=== PATIENT | female | born 1985 | race Caucasian/White ===

== ENCOUNTER 2017-12-14 20:40 | Emergency (ER) | payer OTHER, MEDICAID, SELFPAY ==
[2017-12-14 20:48] VITALS: BP 121/85; PULSE 86; RESP 16; TEMP 36.1; O2SAT 99; BMI 37.3
[2017-12-14 21:09] LABS: RBC Urine None Seen (0-5/HPF)
--- NOTE | 2017-12-14 21:14 | ED.FEMALEGU ---
HPI - Female Genitourinary <Kelsie Carrillo, ANCILLARY SERVICES MANAGER THERAPY-BC - Last Filed: 12/14/17 21:42> General Chief complaint: Urogenital-Female Stated complaint: UTI Time Seen by Provider: 12/14/17 20:42 Source: patient Mode of arrival: ambulatory Limitations: no limitations History of Present Illness HPI Narrative: Patient presents with dysuria, urgency and frequency for several days. She also complains of lower back ache. She denies fevers, denies nausea, vomiting or diarrhea. States that she has had UTIs on all since she was 2 years old. States she has not had 1 for the past year to. States that it evans so much to urinate that she is no longer drinking enough water. She states she has been using azo for the past 2 days. Denies any vaginal symptoms. Related Data Home Medications Medication Instructions Recorded Confirmed bupropion HCl [Wellbutrin SR] 200 mg PO QAM #0 11/27/16 cholecalciferol (vitamin D3) 50,000 unit PO #0 11/27/16 clonazepam BID #0 11/27/16 clonidine HCl 3 tab PO HS #0 11/27/16 dextroamphetamine-amphetamine 10 mg PO BID #0 11/27/16 [Adderall] doxazosin 2 mg PO QDAY #0 11/27/16 gabapentin [Neurontin] 600 mg PO TID #0 11/27/16 lurasidone [Latuda] 20 mg PO QDAY #0 11/27/16 Previous Rx's Medication Instructions Recorded meclizine 25 mg PO Q6HP PRN #20 tab 11/27/16 ondansetron [Zofran ODT] 4 mg SUBLINGUAL Q4HP PRN #15 odt 11/27/16 nitrofurantoin macrocrystal 100 mg PO BID #14 cap 12/14/17 Allergies Allergy/AdvReac Type Severity Reaction Status Date / Time ciprofloxacin [From CIPRO] Allergy Severe Difficulty Unverified 12/14/17 20:54 Breathing amoxicillin [AMOXICILLIN] Allergy Intermediate HIVES Unverified 09/10/17 12:02 Penicillins [PENICILLINS] Allergy Intermediate HIVES Unverified 09/10/17 12:02 Sulfa (Sulfonamide Allergy Unknown hives Unverified 09/10/17 12:02 Antibiotics) [SULFA (SULFONAMIDE ANTIBIOTICS)] Review of Systems <TINO Maya-BC - Last Filed: 12/14/17 21:42> Review of Systems GENERAL: Denies chills, fatigue, malaise, fever, sweats. HEENT: Denies sinus pain, ear pain, sore throat, difficulty swallowing, dizziness. RESPIRATORY: Denies dyspnea, cough, wheezing, hemoptysis, sputum. CARDIOVASCULAR: Denies chest pain, palpitations, orthopnea, edema, GASTROINTESTINAL: Denies nausea, vomiting, abdominal pain, diarrhea, constipation, melena. : See HPI MUSCULOSKELETAL: denies weakness, joint pain, or bony pain SKIN: Denies rash, skin lesions, or other NEUROLOGIC: Denies weakness, headache, numbness, change in speech, confusion, seizures, incoordination. PSYCHIATRIC: No concerning psychosocial issues. 12 point review of systems is negative except for those stated above Exam <Kelsie Carrillo ANCILLARY SERVICES MANAGER THERAPY-BC - Last Filed: 12/14/17 21:42> Narrative Exam Narrative: GENERAL: This is a well-nourished, well-developed patient, teary HEAD: Atraumatic. Normocephalic. No temporal or scalp tenderness. EYES: Pupils equal round and reactive. Extraocular motions intact. No scleral icterus. No injection or drainage. ENT: Nose without bleeding, purulent drainage or septal hematoma. Throat without erythema, tonsillar hypertrophy or exudate. Uvula midline. Airway patent. NECK: Trachea midline. No JVD or lymphadenopathy. Supple, nontender, no meningeal signs. CARDIOVASCULAR: Regular rate and rhythm without murmurs, gallops, or rubs. RESPIRATORY: Clear to auscultation. Breath sounds equal bilaterally. No wheezes, rales, or rhonchi. GASTROINTESTINAL: Abdomen soft, nondistended. No hepato-splenomegaly, or palpable masses. No guarding. Stay slight suprapubic pain to palpation. No pain at McBurney's point. No guarding, no rigidity. No CVA tenderness bilaterally. EXTREMITIES: No clubbing, cyanosis, or edema. No joint tenderness, effusion, or edema noted. BACK: Nontender without deformity or crepitance. No flank tenderness. NEURO: AOx3. SKIN: No rash or erythema. Initial Vital Signs Initial Vital Signs: Vital Signs Temperature 97.0 F L 12/14/17 20:48 Pulse Rate 86 07/15/18 20:48 Respiratory Rate 16 12/14/17 20:48 Blood Pressure 121/85 H 12/14/17 20:48 Pulse Oximetry 99 12/14/17 20:48 <Forrest Dumont DO - Last Filed: 12/14/17 22:59> Initial Vital Signs Initial Vital Signs: Vital Signs Temperature 97.0 F L 12/14/17 20:48 Pulse Rate 86 12/14/17 20:48 Respiratory Rate 16 12/14/17 20:48 Blood Pressure 121/85 H 12/14/17 20:48 Pulse Oximetry 99 12/14/17 20:48 Course <ROOSEVELT Maya - Last Filed: 12/14/17 21:42> Orders Ordered: ED Orders 12/14/17 21:00 UA Complete [Urinalysis and Microscopic] Stat Urine Culture Stat Discontinued Medications Nitrofurantoin Macrocrystals (Macrobid 100 Mg Capsule) 100 mg PO NOW ONE Stop: 12/14/17 21:29 Last Admin: 12/14/17 21:31 Dose: 100 mg Reevaluation(s) Reevaluation #1: Discussed urinalysis result. Discussed giving 1st dose of antibiotic in the emergency department. Discussed return precautions of fever nausea vomiting or diarrhea. Discussed procedure of sending urine culture. Patient had no questions or concerns. Time: 21:25 Vital Signs - 8 hr 12/14/17 20:48 Temperature 97.0 F L Pulse Rate 86 Respiratory Rate 16 Blood Pressure 121/85 H Pulse Oximetry 99 <Forrest Dumont DO - Last Filed: 12/14/17 22:59> Orders Ordered: ED Orders 12/14/17 21:00 UA Complete [Urinalysis and Microscopic] Stat Urine Culture Stat Discontinued Medications Nitrofurantoin Macrocrystals (Macrobid 100 Mg Capsule) 100 mg PO NOW ONE Stop: 12/14/17 21:29 Last Admin: 12/14/17 21:31 Dose: 100 mg Vital Signs - 8 hr 12/14/17 20:48 Temperature 97.0 F L Pulse Rate 86 Respiratory Rate 16 Blood Pressure 121/85 H Pulse Oximetry 99 MDM - Female Genitourinary <ROOSEVELT Maya - Last Filed: 12/14/17 21:42> Lab Data Attestation: I reviewed the patient's lab results. Lab Results 12/14/17 Range/Units 21:00 Urine Color Yellow Urine Appearance Sl cloudy Urine pH 7.5 (4.5-8.0) Ur Specific [place] <=1.005 (1.000-1.035) Urine Protein Negative (Negative) Urine Glucose (UA) Trace (Normal) g/dL Urine Ketones Negative (NEGATIVE) Urine Occult Blood 1+ H (Negative) Urine Nitrate Positive H (Negative) Urine Bilirubin Negative (NEGATIVE) Urine Urobilinogen 1.0 (0.2) E.U./dL Ur Leukocyte Esterase 1+ H (NEGATIVE) Urine RBC None seen (0-5/HPF) Urine WBC 1-5/hpf (0-5/HPF) Ur Squamous Epith Cells 0-1 /hpf Urine Bacteria Moderate (10-30) H (None) Ur Culture Indicated? Specimen cultured Micro UA Comment Not Reportable MDM Narrative Medical decision making narrative: Patient came in with dysuria, urgency and frequency. Patient declined any fevers, nausea vomiting or diarrhea home. A urinalysis showed nitrates, bacteria, leukocyte Estrace and blood. Thus l will treat her for urinary tract infection. Given her lack of systemic symptoms as well as her allergies to ciprofloxacin, penicillin, and sulfa antibiotics I will treat her with Macrobid. Given the hour, I will give her 1st dose in the emergency department and a prescription to take home. <Forrest Dumont, DO - Last Filed: 12/14/17 22:59> Lab Data Lab Results 12/14/17 Range/Units 21:00 Urine Color Yellow Urine Appearance Sl cloudy Urine pH 7.5 (4.5-8.0) Ur Specific [place] <=1.005 (1.000-1.035) Urine Protein Negative (Negative) Urine Glucose (UA) Trace (Normal) g/dL Urine Ketones Negative (NEGATIVE) Urine Occult Blood 1+ H (Negative) Urine Nitrate Positive H (Negative) Urine Bilirubin Negative (NEGATIVE) Urine Urobilinogen 1.0 (0.2) E.U./dL Ur Leukocyte Esterase 1+ H (NEGATIVE) Urine RBC None seen (0-5/HPF) Urine WBC 1-5/hpf (0-5/HPF) Ur Squamous Epith Cells 0-1 /hpf Urine Bacteria Moderate (10-30) H (None) Ur Culture Indicated? Specimen cultured Micro UA Comment Not Reportable Discharge Plan Departure Patient Disposition: Home, Self-Care Clinical Impression: Urinary tract infection Discharge Date/Time: 12/14/17 21:43 Interventions: ED Discharge Assessment Last Done: 12/14/17 21:42 Instructions: DI for Urinary Tract Infection (UTI) Activity Restrictions/Additional Instructions: I am treating you for a urinary tract infection. We have given you a dose of antibiotic in the emergency department. Monitor for fevers, nausea vomiting or diarrhea and be evaluated if any of those occur. These symptoms might represent worsening of your urinary tract infection to a kidney infection. Please drink lots of fluids. I am sending a urine culture to make sure I chose a good antibiotic for you. Prescriptions: New nitrofurantoin macrocrystal 100 mg capsule 100 mg PO BID Qty: 14 RF: 0 No Action clonidine HCl 0.1 MG tablet 3 tab PO HS Qty: 0 RF: 0 dextroamphetamine-amphetamine [Adderall] 10 MG tablet 10 mg PO BID Qty: 0 RF: 0 cholecalciferol (vitamin D3) 50,000 UNIT capsule 50,000 unit PO Qty: 0 RF: 0 gabapentin [Neurontin] 600 MG tablet 600 mg PO TID Qty: 0 RF: 0 bupropion HCl [Wellbutrin SR] 200 MG tablet extended release 12 hr 200 mg PO QAM Qty: 0 RF: 0 lurasidone [Latuda] 20 MG tablet 20 mg PO QDAY Qty: 0 RF: 0 clonazepam 1 MG tablet BID Qty: 0 RF: 0 doxazosin 2 MG tablet 2 mg PO QDAY Qty: 0 RF: 0 ondansetron [Zofran ODT] 4 MG tablet,disintegrating 4 mg Sublingual Q4HP PRNQty: 15 RF: 0 meclizine 25 MG tablet 25 mg PO Q6HP PRNQty: 20 RF: 0 <Forrest Dumont, DO - Last Filed: 12/14/17 22:59> [facility] ED Attending Madyson Attestation: I was immediately available in the department for consultation. Documentation has been reviewed. I agree with assessment and plan.
[2017-12-14 21:21] LABS: Bilirubin Urine UA NEGATIVE (NEGATIVE); Color Urine UA YELLOW; Glucose Urine UA TRACE g/dL (Normal); Ketones Urine UA NEGATIVE (NEGATIVE); Leukocyte Esterase Urine UA 1+ (NEGATIVE); Nitrite Urine UA POSITIVE (Negative); Occult Blood Urine UA 1+ (Negative); Protein Urine UA NEGATIVE (Negative); Specific Gravity Urine UA <=1.005 (1.000-1.035); pH Urine UA 7.5 (4.5-8.0)
[2017-12-14 21:24] LABS: Appearance Urine UA SL CLOUDY
[2017-12-14 21:25] LABS: Bacteria Urine Moderate (10-30); Culture Indicated Urine Specimen Cultured; Squamous Epithelial Cell Urine 0-1 /HPF; WBC Urine 1-5/HPF (0-5/HPF)
[2017-12-14] MEDS: NITROFURANTOIN ER 100 MG CAPSULE PO (21:31)
== END 2017-12-14 21:43 | disposition home or self-care (01) ==
PROVIDERS: Emergency Provider Nurse Practitioner Family
DX: N39.0 Urinary tract infection, site not specified (principal)
CPT/HCPCS: 81001; 87086; 99283

== ENCOUNTER 2018-11-06 19:02 | Emergency (ER) | payer OTHER, MEDICAID, SELFPAY ==
[2018-11-06 19:14] VITALS: BP 144/111; PULSE 100; RESP 15; TEMP 37.7; O2SAT 100; BMI 38.5
--- NOTE | 2018-11-06 20:37 | ED_ITS ---
HPI - Wound/Laceration General Chief Complaint: Wound/Laceration Stated Complaint: Surgery a week ago, pain and drainage Time Seen by Provider: 11/06/18 20:29 Source: patient Mode of arrival: ambulatory Limitations: no limitations History of Present Illness HPI narrative: 33-year-old female who recently underwent a lower lumbar surgery at the [facility]. Patient states that recently she started havi ng increased drainage on the bandage over lower back. She also having increased pain. Also complaining of ?low-grade? fevers at home. She stated that she called her surgeon's office who told her to come to the emergency department for evaluation. Related Data Home Medications Medication Instructions Recorded Confirmed bupropion HCl [Wellbutrin SR] 200 mg PO QAM #0 11/27/16 cholecalciferol (vitamin D3) 50,000 unit PO #0 11/27/16 clonazepam BID #0 11/27/16 clonidine HCl 3 tab PO HS #0 11/27/16 dextroamphetamine-amphetamine 10 mg PO BID #0 11/27/16 [Adderall] doxazosin 2 mg PO QDAY #0 11/27/16 gabapentin [Neurontin] 600 mg PO TID #0 11/27/16 lurasidone [Latuda] 20 mg PO QDAY #0 11/27/16 Previous Rx's Medication Instructions Recorded meclizine 25 mg PO Q6HP PRN #20 tab 11/27/16 ondansetron [Zofran ODT] 4 mg SUBLINGUAL Q4HP PRN #15 odt 11/27/16 nitrofurantoin macrocrystal 100 mg PO BID #14 cap 12/14/17 oxycodone-acetaminophen [Percocet] 1 tab PO Q4-6H PRN #7 tab 11/06/18 Allergies Allergy/AdvReac Type Severity Reaction Status Date / Time ciprofloxacin [From CIPRO] Allergy Severe Difficulty Unverified 12/14/17 20:54 Breathing amoxicillin [AMOXICILLIN] Allergy Intermediate HIVES Unverified 09/10/17 12:02 Penicillins [PENICILLINS] Allergy Intermediate HIVES Unverified 09/10/17 12:02 Sulfa (Sulfonamide Allergy Unknown hives Unverified 09/10/17 12:02 Antibiotics) [SULFA (SULFONAMIDE ANTIBIOTICS)] Review of Systems Constitutional Reports fever(s) ENT Ears, Nose, Mouth, and Throat: Denies neck pain Cardiovascular Denies chest pain and Denies dyspnea Respiratory Denies dyspnea Gastrointestinal Gastrointestinal: Denies abdominal pain Genitourinary Denies dysuria Musculoskeletal Reports back pain, Denies neck pain and Reports radiating pain into limb Integumentary/Breasts Comments: Drainage from the surgical incision in her lower back Neurologic Reports paresthesias Hematologic/Lymphatic Denies easy bleeding and Denies easy bruising [facility] Surgical History History of third molar tooth extraction Status post cholecystectomy Status post colonoscopy Status post colposcopy Family History (Updated 02/21/14 @ 00:00 by Conversion Provider) Child Age: 10 Strep throat Frequent UTI Child Age: 8 ADD (attention deficit disorder) Sensory disorder Father Hypertension Stroke Grandmother Breast cancer Mother Hypertension Grandmother Esophageal cancer Social History Smoking Status: Never smoker Family History Child Age: 10 Strep throat Frequent UTI Child Age: 8 ADD (attention deficit disorder) Sensory disorder Father Hypertension Stroke Grandmother Breast cancer Mother Hypertension Grandmother Esophageal cancer Social History Smoking Status: Never smoker Exam Initial Vital Signs Initial Vital Signs: Vital Signs Temperature 100 F H 11/06/18 19:14 Pulse Rate 100 H 11/06/18 19:14 Respiratory Rate 15 11/06/18 19:14 Blood Pressure 144/111 H 11/06/18 19:14 Pulse Oximetry 100 11/06/18 19:14 Const General: cooperative, comfortable, well developed, well groomed and No acute distress Orientation: alert, awake and oriented x3 HENMT Head: normal to inspection and normocephalic Resp Effort & Inspection: normal respiratory effort Cardio Rate: regular rate GI Inspection: non-distended Palpation: soft Skin Other: Lower lumbar surgical incision appears well. There is no drainage. No surrounding erythema. Neuro General: alert, awake and oriented x3 Extrem General: capillary refill normal Psych Appearance: grossly normal and well kempt Course Orders Ordered: ED Orders 11/06/18 20:37 XR lumbar spine 2-3V Stat 11/06/18 21:15 Basic Metabolic Panel Stat C-Reactive Protein Quant Stat Complete Blood Count AUTO DIFF Stat Erythrocyte Sedimentation Rate Stat Lactate (Lactic Acid) Stat Procalcitonin Stat Discontinued Medications Acetaminophen (Tylenol) 650 mg PO NOW ONE Stop: 11/06/18 20:38 Last Admin: 11/06/18 21:15 Dose: 650 mg Ibuprofen (Advil) 800 mg PO NOW ONE Stop: 11/06/18 20:38 Last Admin: 11/06/18 21:15 Dose: 800 mg Vital Signs - 8 hr 11/06/18 19:14 11/06/18 22:05 Temperature 100 F H Pulse Rate 100 H 74 Respiratory Rate 15 17 Blood Pressure 144/111 H Blood Pressure [Right Arm] 125/84 Pulse Oximetry 100 100 MDM - Wound/Laceration Lab Data Attestation: I reviewed the patient's lab results. Result diagrams: 11/06/18 21:15 11/06/18 21:15 Lab Results 11/06/18 11/06/18 11/06/18 Range/Units 21:15 21:15 21:15 WBC 7.4 (4.5-11.0) X10^3/uL RBC 4.75 (4.0-5.2) X10^6/uL Hgb 14.7 (12.0-16.0) g/dL Hct 41.7 (36-46) % MCV 87.7 (80-100) fL MCH 31.0 (26-34) PG MCHC 35.3 (30-36) % RDW 12.7 (11.6-14.8) % Plt Count 365 (150-400) X10^3/uL Neut % (Auto) 60.1 (50-75) % Lymph % (Auto) 29.7 (25-40) % [place] % (Auto) 6.7 (3-14) % Eos % (Auto) 2.4 (2-4) % Baso % (Auto) 1.1 (0-2) % Neut # (Auto) 4400 (8382-7990) /uL Lymph # (Auto) 2200 (1073-2503) /uL [place] # (Auto) 500 (0-900) /uL Eos # (Auto) 200 (0-450) /uL Baso # (Auto) 100 (0-100) /uL ESR 32 H (0-20) MM/HR Sodium 138 (137-145) mmol/L Potassium 4.2 (3.4-5.1) mmol/L Chloride 102 (98-107) mmol/L Carbon Dioxide 28 (22-32) mmol/L BUN 8 (7-17) mg/dL Creatinine 0.80 (0.52-1.04) mg/dL Estimated GFR > 60.0 (>60) mL/min BUN/Creatinine Ratio 10.0 (6-22) Glucose 92 (70-100) mg/dL Lactate (0.7-2.1) mmol/L Calcium 9.5 (8.4-10.2) mg/dL C-Reactive Protein 1.2 H (<1.0) mg/dL Procalcitonin < 0.05 (<0.5) ng/mL 11/06/18 Range/Units 21:15 WBC (4.5-11.0) X10^3/uL RBC (4.0-5.2) X10^6/uL Hgb (12.0-16.0) g/dL Hct (36-46) % MCV (80-100) fL MCH (26-34) PG MCHC (30-36) % RDW (11.6-14.8) % Plt Count (150-400) X10^3/uL Neut % (Auto) (50-75) % Lymph % (Auto) (25-40) % [place] % (Auto) (3-14) % Eos % (Auto) (2-4) % Baso % (Auto) (0-2) % Neut # (Auto) (0758-4215) /uL Lymph # (Auto) (6439-9302) /uL [place] # (Auto) (0-900) /uL Eos # (Auto) (0-450) /uL Baso # (Auto) (0-100) /uL ESR (0-20) MM/HR Sodium (137-145) mmol/L Potassium (3.4-5.1) mmol/L Chloride (98-107) mmol/L Carbon Dioxide (22-32) mmol/L BUN (7-17) mg/dL Creatinine (0.52-1.04) mg/dL Estimated GFR (>60) mL/min BUN/Creatinine Ratio (6-22) Glucose (70-100) mg/dL Lactate 0.9 (0.7-2.1) mmol/L Calcium (8.4-10.2) mg/dL C-Reactive Protein (<1.0) mg/dL Procalcitonin (<0.5) ng/mL Imaging Data Lumbar spine x-ray: Radiologist's impression: [address] [address] XRay Report Signed Patient: Kelsy GonzalesR#: [id number] : 1985Acct:[id number] Age/Sex: 33 / FDate of Service: 11/06/18 Loc: ED Accession Number: [id number] Procedure: XR lumbar spine 2-3V Ordering Provider: Michael Frost D.O. PROCEDURE: XR LUMBAR SPINE 2-3V INDICATIONS: Surgery 1 week ago now with pain TECHNIQUE: 2 views of the lumbar spine were acquired. COMPARISON: None. FINDINGS: Bones: 5 [id number] vertebrae are present. There is normal bony alignment. No vertebral body compression fractures. No suspicious bony lesions. There is discectomy, laminectomy and posterior fusion at L3-L4. Soft tissues: Overlying bowel gas pattern is normal. No suspicious soft tissue calcifications. Cholecystectomy clips are noted. IMPRESSION: Postsurgical changes with discectomy, laminectomy and posterior fusion at L3-L4. Surgical hardware appears intact. Dictated by: Ted Potter M.D. on 11/06/2018 at 21:23 Approved by: Ted Potter M.D. on 11/06/2018 at 21:25 MDM Narrative Medical decision making narrative: Patient's surgical incision does look very well. I did discuss the case with her operative surgeon who was on-call at the [facility] this evening. He agreed that secondary to her labs and her vital signs that infection is unlikely. Hold on any antibiotics for now. Will refill a small amount of the patient's pain medication. She is instructed that on Friday she had to contact his office. She does have an appointment with him in approximately 1 week from now. She was given return precautions. She expressed understanding and agreement with plan. Discharge Plan Departure Patient Disposition: Home Clinical Impression: Chronic back pain Qualifiers: Back pain location: low back pain Back pain laterality: right Sciatica pre sence: with sciatica Sciatica laterality: sciatica laterality unspecified Qualified Code(s): M54.40 - Lumbago with sciatica, unspecified side Discharge Date/Time: 11/06/18 22:56 Interventions: ED Discharge Assessment Last Done: 11/06/18 22:55 Instructions: Activity May Be Better then Rest for Low Back Pain Recovery Activity Restrictions/Additional Instructions: Continue all of your postoperative instructions given to you by your orthopedic surgeon. On Friday contact their office for a follow-up. Return to the emergency department for any new or worsening symptoms Prescriptions: New oxycodone-acetaminophen [Percocet] 5-325 mg tablet 1 tab PO Q4-6H PRN (Reason: pain) Qty: 7 RF: 0 No Action clonidine HCl 0.1 MG tablet 3 tab PO HS Qty: 0 RF: 0 dextroamphetamine-amphetamine [Adderall] 10 MG tablet 10 mg PO BID Qty: 0 RF: 0 cholecalciferol (vitamin D3) 50,000 UNIT capsule 50,000 unit PO Qty: 0 RF: 0 gabapentin [Neurontin] 600 MG tablet 600 mg PO TID Qty: 0 RF: 0 bupropion HCl [Wellbutrin SR] 200 MG tablet extended release 12 hr 200 mg PO QAM Qty: 0 RF: 0 lurasidone [Latuda] 20 MG tablet 20 mg PO QDAY Qty: 0 RF: 0 clonazepam 1 MG tablet BID Qty: 0 RF: 0 doxazosin 2 MG tablet 2 mg PO QDAY Qty: 0 RF: 0 ondansetron [Zofran ODT] 4 MG tablet,disintegrating 4 mg Sublingual Q4HP PRNQty: 15 RF: 0 meclizine 25 MG tablet 25 mg PO Q6HP PRNQty: 20 RF: 0 nitrofurantoin macrocrystal 100 mg capsule 100 mg PO BID Qty: 14 RF: 0
[2018-11-06] MEDS: IBUPROFEN 400 MG TABLET 800 MG PO (21:15)
[2018-11-06] MEDS: ACETAMINOPHEN 325 MG TABLET 650 MG PO (21:15)
[2018-11-06 21:33] LABS: Add Manual Diff / Slide Review NO; Basophils Absolute Auto 100 /uL (0-100); Basophils Percent Auto 1.1 % (0-2); Eosinophils Absolute Auto 200 /uL (0-450); Eosinophils Percent Auto 2.4 % (2-4); Hematocrit 41.7 % (36-46); Hemoglobin 14.7 g/dL (12.0-16.0); Lymphocytes Absolute Auto 2200 /uL (1100-4500); Lymphocytes Percent Auto 29.7 % (25-40); Mean Corpuscular HGB Conc 35.3 % (30-36); Mean Corpuscular Volume 87.7 fL (80-100); Monocytes Absolute Auto 500 /uL (0-900); Monocytes Percent Auto 6.7 % (3-14); Neutrophils Absolute Auto 4400 /uL (1500-7000); Neutrophils Percent Auto 60.1 % (50-75); Platelet Count 365 X10^3/uL (150-400); Red Blood Cell Count 4.75 X10^6/uL (4.0-5.2); Red Cell Distribution Width 12.7 % (11.6-14.8); White Blood Cell Count 7.4 X10^3/uL (4.5-11.0)
[2018-11-06 21:35] LABS: Lactate (Lactic Acid) 0.9 mmol/L (0.7-2.1)
[2018-11-06 21:37] LABS: Blood Urea Nitrogen 8 mg/dL (7-17); Calcium 9.5 mg/dL (8.4-10.2); Carbon Dioxide 28 mmol/L (22-32); Chloride 102 mmol/L (98-107); Estimated Glomerular Filt Rate > 60.0 mL/min (>60); Glucose 92 mg/dL (70-100); Potassium 4.2 mmol/L (3.4-5.1); Sodium 138 mmol/L (137-145)
[2018-11-06 21:50] LABS: C-Reactive Protein Quant 1.2 mg/dL (<1.0); HEMOLYSIS < 15 (0-50)
[2018-11-06 21:59] LABS: Erythrocyte Sedimentation Rate 32 MM/HR (0-20)
[2018-11-06 22:05] VITALS: BP 125/84; PULSE 74; RESP 17; O2SAT 100
[2018-11-06 22:22] LABS: Procalcitonin < 0.05 ng/mL (<0.5)
== END 2018-11-06 22:56 | disposition home or self-care (01) ==
PROVIDERS: Emergency Provider Emergency Medicine
DX: M54.40 Lumbago with sciatica, unspecified side (principal)
CPT/HCPCS: 36591; 72100; 80048; 83605; 84145; 85025; 85651; 86140; 99283; 99284

== ENCOUNTER 2020-05-30 17:33 | Emergency (ER) | payer OTHER, MEDICAID, SELFPAY ==
[2020-05-30 17:57] VITALS: BP 127/90; PULSE 89; RESP 17; O2SAT 98; BMI 40.2
--- NOTE | 2020-05-30 18:11 | PC.NURSE ---
rt foot pulse +
--- NOTE | 2020-05-30 19:45 | ED_ITS ---
HPI - Extremity Injury (Lower) General Chief Complaint: Extremity Injury, Lower Stated Complaint: Sledding Accident Right Knee Injury Time Seen by Provider: 05/30/20 19:42 Source: patient Mode of arrival: Wheelchair Limitations: no limitations History of Present Illness HPI Narrative: Patient is a 34-year-old female here for evaluation of right knee injury. Patient states that earlier today she was sled riding when she got her right knee twisted. She was evaluated by aide staff and was told to come to the emergency department because there was concern about lack of palpating pulses in her right foot. She did not go to [facility] where she was instructed to go in came here to this emergency department. No prior injury. Related Data Home Medications Medication Instructions Recorded Confirmed bupropion HCl [Wellbutrin SR] 200 mg PO QAM #0 11/27/16 cholecalciferol (vitamin D3) 50,000 unit PO #0 11/27/16 clonazepam BID #0 11/27/16 clonidine HCl 3 tab PO HS #0 11/27/16 dextroamphetamine-amphetamine 10 mg PO BID #0 11/27/16 [Adderall] doxazosin 2 mg PO QDAY #0 11/27/16 gabapentin [Neurontin] 600 mg PO TID #0 11/27/16 lurasidone [Latuda] 20 mg PO QDAY #0 11/27/16 Previous Rx's Medication Instructions Recorded meclizine 25 mg PO Q6HP PRN #20 tab 11/27/16 ondansetron [Zofran ODT] 4 mg SUBLINGUAL Q4HP PRN #15 odt 11/27/16 nitrofurantoin macrocrystal 100 mg PO BID #14 cap 12/14/17 oxycodone-acetaminophen [Percocet] 1 tab PO Q4-6H PRN #7 tab 11/06/18 Allergies Allergy/AdvReac Type Severity Reaction Status Date / Time ciprofloxacin [From CIPRO] Allergy Severe Difficulty Unverified 12/14/17 20:54 Breathing hydromorphone [From Dilaudid] Allergy Severe Anaphylaxis Verified 05/30/20 21:03 amoxicillin [AMOXICILLIN] Allergy Intermediate HIVES Unverified 09/10/17 12:02 Penicillins [PENICILLINS] Allergy Intermediate HIVES Unverified 09/10/17 12:02 Sulfa (Sulfonamide Allergy Unknown hives Unverified 09/10/17 12:02 Antibiotics) [SULFA (SULFONAMIDE ANTIBIOTICS)] Review of Systems Constitutional Constitutional: Denies fever(s) Musculoskeletal Comments: Right knee pain Integumentary/Breasts Skin/Breast: Denies lesions and Denies rash Neurologic Neurologic: Denies sensory deficit Hematologic/Lymphatic Hematologic/Lymphatic: Denies easy bleeding and Denies easy bruising Patient History Surgical History History of third molar tooth extraction Status post cholecystectomy Status post colonoscopy Status post colposcopy Family History Child Age: 12 Strep throat Frequent UTI Child Age: 10 ADD (attention deficit disorder) Sensory disorder Father Hypertension Stroke Grandmother Breast cancer Mother Hypertension Grandmother Esophageal cancer Social History Smoking Status: Never smoker Smoking Status: Never smoker alcohol intake frequency: 0-2 drinks per day Substance Use Type: does not use Exam Initial Vital Signs Initial Vital Signs: Vital Signs Pulse Rate 89 05/30/20 17:57 Respiratory Rate 17 05/30/20 17:57 Blood Pressure 127/90 05/30/20 17:57 Pulse Oximetry 98 05/30/20 17:57 Const General: cooperative and comfortable Cardio Pulses: dorsalis pedis present on the right Skin Lesions: no lesions Rashes: no rashes Neuro Sensory Exam: no sensory deficits noted Extrem Other: Patient with tenderness to palpation throughout the knee specifically on the medial aspect. Unable to perform functional testing of ACL MCL PCL and LCL secondary to patient's discomfort. Procedures Orthopedic Splinting/Casting Injury #1: Side: right Lower Extremity Injury Location: knee Lower Extremity Immobilizer: wrap Other Orthopedic Equipment: crutches Post splinting neuro exam: no change Post splinting vascular exam: no change Placed by: Nursing Course Orders Ordered: ED Orders 05/30/20 19:45 XR knee RT 3V Stat Discontinued Medications Acetaminophen (Acetaminophen 325 Mg Tablet) 650 mg PO NOW ONE Stop: 05/30/20 20:07 Last Admin: 05/30/20 20:10 Dose: 650 mg Documented by: ABEL Ibuprofen (Ibuprofen 400 Mg Tablet) 800 mg PO NOW ONE Stop: 05/30/20 20:07 Last Admin: 05/30/20 20:10 Dose: 800 mg Documented by: ABEL Vital Signs Vital signs: Vital Signs - 8 hr 05/30/20 21:06 Pulse Rate 72 Respiratory Rate 16 Blood Pressure 135/79 Pulse Oximetry 98 MDM - Extremity Injury (Lower) Imaging Data Extremity x-ray #1: Radiologist's Impression: [address] [id number] ReportSigned Patient: Kelsy Gonzales JMR#: [id number]: 1985Acct:[id number]/Sex: 34 / FDate of Service: 05/30/20Loc: EDAccession Number: [id number] Procedure: XR knee RT 3V Ordering Provider: Michael Frost D.O. PROCEDURE: XR KNEE RT 3V INDICATIONS: right knee pain after sledding injury TECHNIQUE: 3 views of the knee were acquired. COMPARISON: None. FINDINGS: Bones: No fractures or dislocations. No suspicious bony lesions. Soft tissues: Small joint effusion. IMPRESSION: Small joint effusion. No fracture If the patient's pain or other symptoms persist, consider further evaluation with MRI Dictated by: Herrera Fortune M.D. on 05/30/2020 at 20:27 Approved by: Herrera Fortune M.D. on 05/30/2020 at 20:28 [facility] Narrative Medical decision making narrative: Patient has no fractures, she is brittany rovascularly intact, difficult to obtain a complete knee exam secondary to patient's discomfort with just palpation. I did discuss this with the patient. Informed her that she can walk on her knee given the fact that there is no fractures. She was given a bandage and also crutches. I will have her keep her knee elevated. If she is still having symptoms, specifically instability, after the swelling improves she does need to follow-up with her primary doctor about having a MRI is that there is a chance that she has ligament versus meniscus injury. She was given a work note. Discharge Plan Departure Patient Disposition: Home Clinical Impression: Right knee sprain Qualifiers: Encounter type: initial encounter Involved ligament of knee: unspecified ligament Qualified Code(s): S83.91XA - Sprain of unspecified site of right knee, initial encounter Instructions: How to Use Crutches, How To Perform RICE (Rest, Ice, Compress, Elevate), How to Apply an Elastic Wrap on Knee Activity Restrictions/Additional Instructions: There were no fractures on the x-rays. You can walk on your knee as tolerated. Use the crutches as tolerated. If your symptoms do not improve in the next couple days contact your primary provider for follow-up to discuss further workup. Prescriptions: No Action clonidine HCl 0.1 MG tablet 3 tab PO HS Qty: 0 RF: 0 dextroamphetamine-amphetamine [Adderall] 10 MG tablet 10 mg PO BID Qty: 0 RF: 0 cholecalciferol (vitamin D3) 50,000 UNIT capsule 50,000 unit PO Qty: 0 RF: 0 gabapentin [Neurontin] 600 MG tablet 600 mg PO TID Qty: 0 RF: 0 bupropion HCl [Wellbutrin SR] 200 MG tablet extended release 12 hr 200 mg PO QAM Qty: 0 RF: 0 lurasidone [Latuda] 20 MG tablet 20 mg PO QDAY Qty: 0 RF: 0 clonazepam 1 MG tablet BID Qty: 0 RF: 0 doxazosin 2 MG tablet 2 mg PO QDAY Qty: 0 RF: 0 ondansetron [Zofran ODT] 4 MG tablet,disintegrating 4 mg Sublingual Q4HP PRNQty: 15 RF: 0 meclizine 25 MG tablet 25 mg PO Q6HP PRNQty: 20 RF: 0 oxycodone-acetaminophen [Percocet] 5-325 mg tablet 1 tab PO Q4-6H PRN (Reason: pain) Qty: 7 RF: 0 nitrofurantoin macrocrystal 100 mg capsule 100 mg PO BID Qty: 14 RF: 0 Stand Alone Forms: Work Release Note
[2020-05-30] MEDS: IBUPROFEN 400 MG TABLET 800 MG PO (20:10)
[2020-05-30] MEDS: ACETAMINOPHEN 325 MG TABLET 650 MG PO (20:10)
[2020-05-30 21:06] VITALS: BP 135/79; PULSE 72; RESP 16; O2SAT 98
== END 2020-05-30 21:17 | disposition home or self-care (01) ==
PROVIDERS: Emergency Provider Emergency Medicine
DX: S83.91XA Sprain of unspecified site of right knee, initial encounter (principal); X50.1XXA Overexertion from prolonged static or awkward postures, initial encounter; Y93.23 Activity, snow (alpine) (downhill) skiing, snowboarding, sledding, tobogganing and snow tubing
CPT/HCPCS: 73562; 99283

== ENCOUNTER → 2021-03-26 17:00 | Outpatient (CLI) | payer OTHER, MEDICAID, SELFPAY ==
[2021-03-26 18:22] LABS: COVID19 -Nasal RAPID Negative (Negative)
== END ==
PROVIDERS: Visit Provider Nurse Practitioner Family
DX: Z20.822 Contact with and (suspected) exposure to COVID-19 (principal)
CPT/HCPCS: 87635

== ENCOUNTER → 2022-01-01 10:58 | Outpatient (CLI) | payer OTHER, MEDICAID, SELFPAY ==
--- NOTE | 2022-01-01 11:02 | DI.RAD.S_ITS ---
PROCEDURE: XR CHEST 2V INDICATIONS: Covid + 12/22 TECHNIQUE: 2 views of the chest were acquired. COMPARISON: None. FINDINGS: Surgical changes and devices: None. Lungs and pleura: Lungs are clear. No pleural effusions or pneumothorax. Mediastinum: Mediastinal contours are normal. Heart size is normal. Bones and chest wall: No suspicious bony abnormalities. Soft tissues appear unremarkable. IMPRESSION: No acute cardiopulmonary process demonstrated. Dictated by: Ever Stein M.D. on 01/01/2022 at 12:12 Approved by: Ever Stein M.D. on 01/01/2022 at 12:12
== END ==
PROVIDERS: Referring Provider Physician Assistant; Visit Provider Physician Assistant
DX: U07.1 COVID-19 (principal); R06.02 Shortness of breath
CPT/HCPCS: 71046

== ENCOUNTER 2022-01-01 13:13 | Emergency (ER) | payer OTHER, MEDICAID, SELFPAY ==
[2022-01-01 13:17] VITALS: BP 128/81; PULSE 97; RESP 22; TEMP 37.5; O2SAT 100
[2022-01-01 13:37] LABS: Add Manual Diff / Slide Review NO; Basophils Absolute Auto 100 /uL (0-100); Basophils Percent Auto 1.2 % (0-2); Eosinophils Absolute Auto 200 /uL (0-450); Eosinophils Percent Auto 2.6 % (2-4); Hematocrit 42.7 % (36-46); Hemoglobin 14.9 g/dL (12.0-16.0); Lymphocytes Absolute Auto 2400 /uL (1100-4500); Lymphocytes Percent Auto 26.7 % (25-40); Mean Corpuscular HGB Conc 34.8 % (30-36); Mean Corpuscular Hemoglobin 30.8 PG (26-34); Mean Corpuscular Volume 88.5 fL (80-100); Monocytes Absolute Auto 600 /uL (0-900); Monocytes Percent Auto 6.7 % (3-14); Neutrophils Absolute Auto 5700 /uL (1500-7000); Neutrophils Percent Auto 62.8 % (50-75); Platelet Count 415 X10^3/uL (150-400); Red Blood Cell Count 4.83 X10^6/uL (4.0-5.2); Red Cell Distribution Width 12.8 % (11.6-14.8); White Blood Cell Count 9.1 X10^3/uL (4.5-11.0)
[2022-01-01 13:53] LABS: Alanine Aminotransferase 26 IU/L (<35); Albumin 4.3 g/dL (3.5-5.0); Albumin Globulin Ratio 1.4 (1.0-2.8); Alkaline Phosphatase 99 U/L (38-126); Aspartate Aminotransferase 27 IU/L (14-36); BUN Creatinine Ratio 13.5 (6-22); Bilirubin Total 0.4 mg/dL (0.2-1.3); Blood Urea Nitrogen 12 mg/dL (7-17); Calcium 9.1 mg/dL (8.4-10.2); Carbon Dioxide 31 mmol/L (22-32); Chloride 100 mmol/L (98-107); Creatine Kinase 80 U/L (30-135); Estimated Glomerular Filt Rate > 60 mL/min (>60); Globulin 3.1 g/dL (1.7-4.1); Glucose 104 mg/dL (70-100); HEMOLYSIS < 15 (0-50); Lipase 55 U/L (23-300); Magnesium 1.8 mg/dL (1.6-2.3); Potassium 4.4 mmol/L (3.4-5.1); Sodium 137 mmol/L (137-145); Total Protein 7.4 g/dL (6.3-8.2)
[2022-01-01 14:06] LABS: Troponin I < 0.012 ng/mL (0.01-0.034)
[2022-01-01 14:13] LABS: D Dimer < 200 ng/mL (<230)
--- NOTE | 2022-01-01 16:57 | ED_ITS ---
HPI - Chest Pain General Chief Complaint: Chest Pain Stated Complaint: COVID+ low oxygen levels- sent by [facility] Time Seen by Provider: 01/01/22 16:26 Source: patient Mode of arrival: Ambulatory History of Present Illness HPI narrative: Patient is a 36-year-old female history of PTSD, depression ADHD presenting with cough and COVID. She says she was diagnosed with COVID about 10 days ago she pleasantly had low oxygen levels. She continues to not feel well. She has a nonproductive cough overall just extreme fatigue. She is already taking albuterol she has a nothing seems to be helping. She is not hypoxic she is 100% on room air. She is in no respiratory distress Related Data Home Medications Medication Instructions Recorded Confirmed bupropion HCl 200 mg tablet,12 hr 200 mg PO QAM ##0 11/27/16 01/01/22 sustained-release (Wellbutrin SR) cholecalciferol (vitamin D3) 1,250 50,000 unit PO ##0 11/27/16 01/01/22 mcg (50,000 unit) capsule clonazepam 1 mg tablet BID ##0 11/27/16 01/01/22 clonidine HCl 0.1 mg tablet 3 tab PO HS ##0 11/27/16 01/01/22 dextroamphetamine-amphetamine 10 10 mg PO BID ##0 11/27/16 01/01/22 mg tablet (Adderall) doxazosin 2 mg tablet 2 mg PO QDAY ##0 11/27/16 01/01/22 gabapentin 600 mg tablet 600 mg PO TID ##0 11/27/16 01/01/22 (Neurontin) lurasidone 20 mg tablet (Latuda) 20 mg PO QDAY ##0 11/27/16 01/01/22 spironolactone 25 mg tablet 25 mg PO DAILY 11/28/21 01/01/22 Previous Rx's Medication Instructions Recorded meclizine 25 mg tablet 25 mg PO Q6HP PRN #20 tabs 11/27/16 ondansetron 4 mg disintegrating 4 mg sublingual Q4HP PRN ##15 11/27/16 tablet (Zofran ODT) nitrofurantoin macrocrystal 100 mg 100 mg PO BID #14 caps 12/14/17 capsule oxycodone-acetaminophen 5 mg-325 1 tab PO Q4-6H PRN pain #7 tabs 11/06/ mg tablet (Percocet) albuterol sulfate 90 mcg/actuation 2 puff inhalation Q4-6H PRN 11/28/21 aerosol inhaler bronchospasm #8.5 grams azithromycin 250 mg tablet See Rx Instructions PO .COMPLEX #6 11/28/21 tabs benzonatate 100 mg capsule 100 mg PO TID PRN cough #30 caps 11/28/21 prednisone 20 mg tablet 40 mg PO DAILY #10 tabs 01/01/22 Allergies Allergy/AdvReac Type Severity Reaction Status Date / Time ciprofloxacin [From CIPRO] Allergy Severe Difficulty Unverified 01/01/22 11:01 Breathing hydromorphone [From Dilaudid] Allergy Severe Anaphylaxis Verified 01/01/22 11:01 amoxicillin [AMOXICILLIN] Allergy Intermediate HIVES Unverified 01/01/22 11:01 Penicillins [PENICILLINS] Allergy Intermediate HIVES Unverified 01/01/22 11:01 Sulfa (Sulfonamide Allergy Unknown hives Unverified 01/01/22 11:01 Antibiotics) [SULFA (SULFONAMIDE ANTIBIOTICS)] Review of Systems Review of Systems Narrative: GENERAL: Denies chills, fatigue, malaise, fever, sweats, travel HEENT: Denies sinus pain, ear pain, sore throat, difficulty swallowing, neck pain RESPIRATORY: See HPI CARDIOVASCULAR: Denies chest pain, palpitations, orthopnea, edema GASTROINTESTINAL: Denies nausea, vomiting, abdominal pain, diarrhea, constipation, melena. : Denies dysuria, frequency, incontinence, hematuria, urinary retention, flank pain. MUSCULOSKELETAL: Denies weakness, joint pain, or bony pain SKIN: No rash, no erythema, no pruritus NEUROLOGIC: Denies weakness, dizziness, headache, numbness, change in speech, confusion PSYCHIATRIC: No concerning psychosocial issues. 12 point review of systems is negative except for those stated above and HPI Patient History Surgical History History of third molar tooth extraction Status post cholecystectomy Status post colonoscopy Status post colposcopy Family History Child Age: 13 Strep throat Frequent UTI Child Age: 11 ADD (attention deficit disorder) Sensory disorder Father Hypertension Stroke Grandmother Breast cancer Mother Hypertension Grandmother Esophageal cancer Social History Smoking Status: Never smoker Smoking Status: Never smoker alcohol intake frequency: 0-2 drinks per day Substance Use Type: does not use Exam Initial Vital Signs Initial Vital Signs: Vital Signs Temperature 99.5 F 01/01/22 13:17 Pulse Rate 97 H 01/01/22 13:17 Respiratory Rate 22 01/01/22 13:17 Blood Pressure 128/81 01/01/22 13:17 Pulse Oximetry 100 01/01/22 13:17 Oxygen Delivery Method 01/01/22 13:17 GENERAL: Alert 36-year-old female no acute distress and in no acute distress. HEENT: Head atraumatic,EOMI, pupils reactive, face symmetric, moist mucous membranes CARDIOVASCULAR: Regular rate and rhythm without murmurs, rubs or gallops. RESPIRATORY: No respiratory distress speaks in full sentences clear bilaterally ABDOMEN: Soft, nontender. Normoactive bowel sounds all 4 quadrants. No guarding or rebound. EXTREMITIES: Normal range of motion, no clubbing or edema. Neurovascularly intact NEUROLOGICAL: Alert and oriented x4. SKIN: Warm, dry, no laceration, no petechiae, no rashes or lesions. Course Orders Ordered: ED Orders 01/01/22 13:21 EKG-12 Lead Stat 01/01/22 13:29 Complete Blood Count AUTO DIFF Stat Comprehensive Metabolic Panel Stat D Dimer Stat Lipase Stat Magnesium Stat Troponin & CK Cardiac Panel Stat Vital Signs Vital signs: Vital Signs - 8 hr 01/01/22 13:17 01/01/22 17:14 Temperature 99.5 F Pulse Rate 97 H 75 Respiratory Rate 22 18 Blood Pressure 128/81 140/95 H Pulse Oximetry 100 98 Oxygen Delivery Method Room Air Room Air MDM - Chest Pain Lab Data Result diagrams: 01/01/22 13:29 01/01/22 13:29 Labs: Lab Results 01/01/22 01/01/22 01/01/22 Range/Units 13:29 13:29 13:29 WBC 9.1 (4.5-11.0) X10^3/uL RBC 4.83 (4.0-5.2) X10^6/uL Hgb 14.9 (12.0-16.0) g/dL Hct 42.7 (36-46) % MCV 88.5 (80-100) fL MCH 30.8 (26-34) PG MCHC 34.8 (30-36) % RDW 12.8 (11.6-14.8) % Plt Count 415 H (150-400) X10^3/uL Neut % (Auto) 62.8 (50-75) % Lymph % (Auto) 26.7 (25-40) % [place] % (Auto) 6.7 (3-14) % Eos % (Auto) 2.6 (2-4) % Baso % (Auto) 1.2 (0-2) % Neut # (Auto) 5700 (3589-6547) /uL Lymph # (Auto) 2400 (0322-4902) /uL [place] # (Auto) 600 (0-900) /uL Eos # (Auto) 200 (0-450) /uL Baso # (Auto) 100 (0-100) /uL D-Dimer < 200 (<230) ng/mL Sodium 137 (137-145) mmol/L Potassium 4.4 (3.4-5.1) mmol/L Chloride 100 (98-107) mmol/L Carbon Dioxide 31 (22-32) mmol/L BUN 12 (7-17) mg/dL Creatinine 0.89 (0.52-1.04) mg/dL Estimated GFR > 60 (>60) mL/min BUN/Creatinine Ratio 13.5 (6-22) Glucose 104 H (70-100) mg/dL Calcium 9.1 (8.4-10.2) mg/dL Magnesium 1.8 (1.6-2.3) mg/dL Total Bilirubin 0.4 (0.2-1.3) mg/dL AST 27 (14-36) IU/L ALT 26 (<35) IU/L Alkaline Phosphatase 99 (38-126) U/L Total Creatine Kinase 80 (30-135) U/L CK-MB (CK-2) TNP CK-MB (CK-2) Rel Index TNP Troponin I < 0.012 (0.01-0.034) ng/mL Total Protein 7.4 (6.3-8.2) g/dL Albumin 4.3 (3.5-5.0) g/dL Globulin 3.1 (1.7-4.1) g/dL Albumin/Globulin Ratio 1.4 (1.0-2.8) Lipase 55 (23-300) U/L Imaging Data Chest x-ray: Radiologist's Impression: XRay Report Signed Patient: Kelsy Gonzales MR#: [id number] : 1985 Acct:[id number] Age/Sex: 36 / F Date of Service: 01/01/22 Loc: RAD Accession Number: [id number] ?? Procedure: XR chest 2V Ordering Provider: Sandi Anderson P.A-C PROCEDURE:? XR CHEST 2V ? INDICATIONS:? Covid + 12/22 ? TECHNIQUE:? 2 views of the chest were acquired.? ? COMPARISON:? None. ? FINDINGS:? ? Surgical changes and devices:? None.? ? Lungs and pleura:? Lungs are clear.? No pleural effusions or pneumothorax.? ? Mediastinum:? Mediastinal contours are normal.? Heart size is normal.? ? Bones and chest wall:? No suspicious bony abnormalities.? Soft tissues appear unremarkable.? ? IMPRESSION:? No acute cardiopulmonary process demonstrated. ? ? Dictated by: Ever Stein M.D. on 01/01/2022 at 12:12 ? ? ECG Data Interpretation: Normal sinus rhythm rate 85 [place] interval 152 QRS 84 QTC 445 no ischemic changes MDM Narrative Medical decision making narrative: Patient overall appears well she is not hypoxic her chest x-ray is negative D- dimer is negative cardiac workup is also negative. This is likely COVID. She is already taking albuterol not really helping. Can try a course prednisone to see if it helps her. She overall just does not feel well and cannot go back to work. Discharge Plan Departure Patient Disposition: Home Clinical Impression: COVID-19 Instructions: DI for COVID-19 (Suspected or Confirmed ) Activity Restrictions/Additional Instructions: *You have been diagnosed with COVID-19 *What to do: At this time there is no evidence of hypoxia chest x-ray is clear. Unfortunately have persistent COVID like symptoms *Continue to take medications as directed Prednisone 40 mg once a day for 5 days--> SENT TO [facility] *Follow up with your primary care provider in 2-3 days or call [phone] *Return to ER if you should have increasing shortness of breath oxygen persistently less than 90% for more than 1 hour, or any new, worsening or concerning symptoms Prescriptions: New prednisone 20 mg tablet 40 mg PO DAILY Qty: 10 0RF No Action spironolactone 25 mg tablet 25 mg PO DAILY benzonatate 100 mg capsule 100 mg PO TID PRN (Reason: cough) Qty: 30 0RF azithromycin 250 mg tablet See Rx Instructions PO .COMPLEX Qty: 6 0RF Rx Instructions: take 500 mg today (day 1), then 250 mg for 4 days (days 2-5) PO albuterol sulfate 90 mcg/actuation HFA aerosol inhaler 2 puff inhalation Q4-6H PRN (Reason: bronchospasm) Qty: 8.5 0RF clonidine HCl 0.1 MG tablet 3 tab PO HS Qty: 0 dextroamphetamine-amphetamine [Adderall] 10 MG tablet 10 mg PO BID Qty: 0 cholecalciferol (vitamin D3) 50,000 UNIT capsule 50,000 unit PO Qty: 0 gabapentin [Neurontin] 600 MG tablet 600 mg PO TID Qty: 0 bupropion HCl [Wellbutrin SR] 200 MG tablet extended release 12 hr 200 mg PO QAM Qty: 0 lurasidone [Latuda] 20 MG tablet 20 mg PO QDAY Qty: 0 clonazepam 1 MG tablet BID Qty: 0 doxazosin 2 MG tablet 2 mg PO QDAY Qty: 0 ondansetron [Zofran ODT] 4 MG tablet,disintegrating 4 mg Sublingual Q4HP PRNQty: 15 0RF meclizine 25 MG tablet 25 mg PO Q6HP PRNQty: 20 0RF oxycodone-acetaminophen [Percocet] 5-325 mg tablet 1 tab PO Q4-6H PRN (Reason: pain) Qty: 7 0RF nitrofurantoin macrocrystal 100 mg capsule 100 mg PO BID Qty: 14 0RF Rx Instructions: must administer with a meal/food Referrals: Talia Valencia MD [Primary Care Provider] - Visit Report Forms: Patient Portal/API
[2022-01-01 17:14] VITALS: BP 140/95; PULSE 75; RESP 18; O2SAT 98
== END 2022-01-01 17:16 | disposition home or self-care (01) ==
PROVIDERS: Emergency Provider Emergency Medicine; PCP Family Medicine
DX: U07.1 COVID-19 (principal)
CPT/HCPCS: 36415; 71046; 80053; 82550; 83690; 83735; 84484; 85025; 85379; 93005; 99283; 99284

== ENCOUNTER → 2024-04-30 13:10 | Outpatient (CLI) | payer OTHER, SELFPAY ==
--- NOTE | 2024-04-30 13:14 | DI.MRI.S_ITS ---
PROCEDURE: MR LUMBAR SPINE WO CON INDICATIONS: Strain of muscle, fascia and tendon of lower back, TECHNIQUE: Noncontrast sagittal T1 spin echo and T2 fast echo, sagittal STIR, and T2 fast spin echo through the lumbar spine. In cases with scoliosis, additional coronal T2 fast spin echo may be performed. COMPARISON: [facility] Outside Film, MR, MR LUMBAR SPINE WITHOUT CONTRAST, 06/03/2023, 21:12. FINDINGS: Image quality: Excellent. Alignment and Curvature: Straightening of the normal lumbar lordosis. Bone Marrow: L3 through L5 posterior fixation. Degenerative endplate changes, most pronounced at L3-L4. Marrow is of normal overall signal. No acute vertebral body compression fractures. Spinal Cord: Conus medullaris terminates at the L1-L2 level. Visualized cord demonstrates normal signal and size. Paraspinous Soft Tissues: No paravertebral masses. T12-L1: Normal appearance. L1-L2: Facet arthropathy. No central canal or neural foraminal stenosis. L2-L3: Disc desiccation. Facet arthropathy. No central canal or neural foraminal stenosis. L3-L4: Postoperative changes. No central canal stenosis. No neural foraminal stenosis. L4-L5: Postoperative changes. Disc desiccation and mild height loss. Diffuse disc bulge, asymmetric to the left. Facet arthropathy. No central canal stenosis. At least moderate left neural foraminal stenosis and mild right neural foraminal stenosis. L5-S1: Disc desiccation and moderate height loss. Diffuse disc bulge. Facet arthropathy. Postoperative changes. No central canal stenosis. Severe bilateral neural foraminal stenosis. IMPRESSION: 1. Multilevel degenerative changes of the lumbar spine status post L3 through L5 posterior spinal fixation, similar appearance to prior. 2. No significant central canal stenosis throughout. 3. Severe bilateral neural foraminal stenosis at L5-S1. Dictated by: Zan Garcia M.D. on 04/30/2024 at 14:33 Approved by: Zan Garcia M.D. on 04/30/2024 at 14:37
== END ==
PROVIDERS: PCP Internal Medicine; Referring Provider Physical Medicine & Rehabilitation; Visit Provider Physical Medicine & Rehabilitation
DX: S39.012A Strain of muscle, fascia and tendon of lower back, initial encounter (principal); M47.816 Spondylosis without myelopathy or radiculopathy, lumbar region; M47.817 Spondylosis without myelopathy or radiculopathy, lumbosacral region; M48.07 Spinal stenosis, lumbosacral region; Z98.1 Arthrodesis status
CPT/HCPCS: 72148

== ENCOUNTER 2024-08-07 18:18 | Emergency (ER) | payer OTHER, SELFPAY ==
[2024-08-07] VITALS (27 sets, daily range): BP systolic 83–135; BP diastolic 48–78; PULSE 97–126; RESP 12–24; TEMP 37.1–37.7; O2SAT 95–100; BMI 40.8
--- NOTE | 2024-08-07 18:32 | DI.RAD.S_ITS ---
PROCEDURE: XR CHEST 1V INDICATIONS: chest pain TECHNIQUE: One view of the chest was acquired. COMPARISON: [facility], CR, XR CHEST 2V, 01/01/2022, 11:08. FINDINGS: Surgical changes and devices: None. Lungs and pleura: Lungs are clear. No pleural effusions or pneumothorax. Mediastinum: Mediastinal contours appear normal. Heart size is normal. Bones and chest wall: No suspicious bony lesions. Overlying soft tissues appear unremarkable. IMPRESSION: No acute cardiopulmonary abnormality is seen. Dictated by: Teena Vyas M.D. on 08/07/2024 at 20:01 Approved by: Teena Vyas M.D. on 08/07/2024 at 20:01
--- NOTE | 2024-08-07 18:37 | EKG_ITS ---
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
[2024-08-07 19:04] LABS: Add Manual Diff / Slide Review NO; Basophils Absolute Auto 0 /uL (0-100); Basophils Percent Auto 0.4 % (0-2); Eosinophils Absolute Auto 200 /uL (0-450); Eosinophils Percent Auto 3.7 % (2-4); Hematocrit 28.4 % (36-46); Hemoglobin 9.8 g/dL (12.0-16.0); Lymphocytes Absolute Auto 1600 /uL (1100-4500); Lymphocytes Percent Auto 25.1 % (25-40); Mean Corpuscular HGB Conc 34.6 % (30-36); Mean Corpuscular Hemoglobin 30.6 PG (26-34); Mean Corpuscular Volume 88.5 fL (80-100); Monocytes Absolute Auto 400 /uL (0-900); Monocytes Percent Auto 7.1 % (3-14); Neutrophils Absolute Auto 4000 /uL (1500-7000); Neutrophils Percent Auto 63.7 % (50-75); Platelet Count 314 X10^3/uL (150-400); Red Blood Cell Count 3.21 X10^6/uL (4.0-5.2); Red Cell Distribution Width 13.4 % (11.6-14.8); White Blood Cell Count 6.3 X10^3/uL (4.5-11.0)
[2024-08-07 19:11] LABS: INR 1.1 (0.9-1.3); Prothrombin Time 12.5 SECONDS (9.4-12.5)
[2024-08-07 19:13] LABS: PTT Partial Thromboplastin Tim 36 SECONDS (25.1-36.5)
[2024-08-07 19:15] LABS: Alanine Aminotransferase 17 IU/L (<35); Albumin 3.1 g/dL (3.5-5.0); Albumin Globulin Ratio 1.2 (1.0-2.8); Alkaline Phosphatase 66 U/L (38-126); Aspartate Aminotransferase 20 IU/L (14-36); BUN Creatinine Ratio 8.1 (6-22); Bilirubin Total 0.3 mg/dL (0.2-1.3); Blood Urea Nitrogen 6 mg/dL (7-17); Calcium 8.5 mg/dL (8.4-10.2); Carbon Dioxide 30 mmol/L (22-32); Chloride 102 mmol/L (98-107); Creatine Kinase 64 U/L (30-135); Estimated Glomerular Filt Rate > 60 mL/min (>60); Globulin 2.6 g/dL (1.7-4.1); Glucose 104 mg/dL (70-100); HEMOLYSIS < 15 (0-50); Lipase 36 U/L (23-300); Magnesium 1.8 mg/dL (1.6-2.3); Potassium 3.4 mmol/L (3.4-5.1); Sodium 136 mmol/L (137-145); Total Protein 5.7 g/dL (6.3-8.2)
[2024-08-07] MEDS: SODIUM CHLORIDE 0.9% 1,000 ML 1000 ML IV ×2 (19:26→21:00)
[2024-08-07 19:27] LABS: NT-proBNP (BNP-Adult 18+) 221 pg/mL (<125); Troponin I < 0.012 ng/mL (0.01-0.034)
--- NOTE | 2024-08-07 19:32 | ED_ITS ---
HPI - Back Pain/Injury General Chief Complaint: Back Pain/Injury Stated Complaint: Headache & Low Back Pain, postop (08/03/24) Time Seen by Provider: 08/07/24 18:48 Source: patient and EMS History of Present Illness HPI Narrative: 38-year-old female had recent fusion back surgery from L5-S1 at [facility] on 08/03/2024, discharged yesterday morning after drains pulled 08/06/2024, complains of global headaches, has had migraine headaches in the past, this feels somewhat different. Worse with changes in position, not particularly worse with movements of the neck. No photophobia. No nausea or vomiting. History of Dilaudid allergy, can take IV morphine. Related Data Home Medications Medication Instructions Recorded Confirmed bupropion HCl 200 mg tablet,12 hr 200 mg PO QAM ##0 11/27/16 01/01/22 sustained-release (Wellbutrin SR) cholecalciferol (vitamin D3) 1,250 50,000 unit PO ##0 11/27/16 01/01/22 mcg (50,000 unit) capsule clonazepam 1 mg tablet BID ##0 11/27/16 01/01/22 clonidine HCl 0.1 mg tablet 3 tab PO HS ##0 11/27/16 01/01/22 dextroamphetamine-amphetamine 10 10 mg PO BID ##0 11/27/16 01/01/22 mg tablet (Adderall) doxazosin 2 mg tablet 2 mg PO QDAY ##0 11/27/16 01/01/22 gabapentin 600 mg tablet 600 mg PO TID ##0 11/27/16 01/01/22 (Neurontin) lurasidone 20 mg tablet (Latuda) 20 mg PO QDAY ##0 11/27/16 01/01/22 spironolactone 25 mg tablet 25 mg PO DAILY 11/28/21 01/01/22 Previous Rx's Medication Instructions Recorded meclizine 25 mg tablet 25 mg PO Q6HP PRN #20 tabs 11/27/16 ondansetron 4 mg disintegrating 4 mg sublingual Q4HP PRN ##15 11/27/16 tablet (Zofran ODT) nitrofurantoin macrocrystal 100 mg 100 mg PO BID #14 caps 12/14/17 capsule oxycodone-acetaminophen 5 mg-325 1 tab PO Q4-6H PRN pain #7 tabs 11/06/ mg tablet (Percocet) albuterol sulfate 90 mcg/actuation 2 puff inhalation Q4-6H PRN 11/28/21 aerosol inhaler bronchospasm #8.5 grams azithromycin 250 mg tablet See Rx Instructions PO .COMPLEX #6 11/28/21 tabs benzonatate 100 mg capsule 100 mg PO TID PRN cough #30 caps 11/28/21 prednisone 20 mg tablet 40 mg (2 x 20 mg) PO DAILY #10 tabs 01/01/22 Allergies Allergy/AdvReac Type Severity Reaction Status Date / Time ciprofloxacin [From CIPRO] Allergy Severe Difficulty Verified 08/07/24 18:43 Breathing hydromorphone [From Dilaudid] Allergy Severe Anaphylaxis Verified 08/07/24 18:43 amoxicillin [AMOXICILLIN] Allergy Intermediate HIVES Verified 08/07/24 18:43 Penicillins [PENICILLINS] Allergy Intermediate HIVES Verified 08/07/24 18:43 Sulfa (Sulfonamide Allergy Unknown hives Verified 08/07/24 18:43 Antibiotics) [SULFA (SULFONAMIDE ANTIBIOTICS)] adhesive Allergy Rash Verified 08/07/24 18:43 Patient History Surgical History (Updated 08/08/24 @ 00:14 by Sebastian Toure MD) Status post colposcopy History of third molar tooth extraction Status post colonoscopy Status post cholecystectomy Family History Child Age: 16 Strep throat Frequent UTI Child Age: 12 ADD (attention deficit disorder) Sensory disorder Father Hypertension Stroke Grandmother Breast cancer Mother Hypertension Grandmother Esophageal cancer Social History Smoking Status: Never smoker Smoking Status: Never smoker alcohol intake frequency: 0-2 drinks per day Exam Narrative Exam Narrative: GENERAL: Well-developed patient, in mild distress. HEAD: Atraumatic. Normocephalic. EYES: Pupils equal round and reactive. Extraocular motions intact. No scleral icterus. No injection or drainage. ENT: Nose without bleeding, purulent drainage. Throat without erythema, tonsillar hypertrophy or exudate. Airway patent. NECK: Trachea midline. Non tender CARDIOVASCULAR: Regular rate and rhythm without murmurs, gallops, or rubs. RESPIRATORY: Clear to auscultation. Breath sounds equal bilaterally. No wheezes, rales, or rhonchi. GASTROINTESTINAL: Abdomen soft, non-tender, nondistended. EXTREMITIES: No edema or joint tenderness. BACK: Nontender without deformity or crepitance. No flank tenderness. Dressing intact lumbar, no tenderness paraspinal, no blood soaking through dressing. NEURO: AOx3. Motor functions grossly nonfocal SKIN: No rash or erythema of visible areas Initial Vital Signs Initial Vital Signs: Vital Signs Temperature 99.5 F 08/07/24 18: Pulse Rate 112 H 08/07/24 18: Respiratory Rate 18 08/07/24 18: Blood Pressure 128/76 08/07/24 18: Pulse Oximetry 100 08/07/24 18: Oxygen Delivery Method Room Air 08/07/24 18:25 Course Orders Ordered: Discontinued Medications Acetaminophen (Acetaminophen 325 Mg Tablet) 975 mg PO NOW ONE Stop: 08/07/24 22:04 Last Admin: 08/07/24 22:52 Dose: 975 mg Documented By: FIDENCIO Sodium Chloride (Normal Saline 0.9%) 1,000 mls @ 1,000 mls/hr IV BOLUS ONE Stop: 08/07/24 20:09 Last Infusion: 08/07/24 20:45 Dose: Infused Documented By: Admin: 08/07/24 19:26 Dose: 1,000 mls/hr Documented By: FIDENCIO Sodium Chloride (Normal Saline 0.9%) 1,000 mls @ 1,000 mls/hr IV BOLUS ONE Stop: 08/07/24 20:31 Last Infusion: 08/07/24 21:56 Dose: Infused Documented By: Admin: 08/07/24 21:00 Dose: 1,000 mls/hr Documented By: FIDENCIO Morphine Sulfate (Morphine 4 Mg/Ml Inj) 4 mg IV NOW ONE Stop: 08/07/24 19:33 Last Admin: 08/07/24 19:55 Dose: 4 mg Documented By: FIDENCIO Morphine Sulfate (Morphine 4 Mg/Ml Inj) 4 mg IV NOW ONE Stop: 08/07/24 21:09 Last Admin: 08/07/24 21:13 Dose: 4 mg Documented By: Ondansetron HCl (Ondansetron 4 Mg/2 Ml Inj) 4 mg IV NOW PRN PRN Reason: Nausea And Vomiting Last Admin: 08/07/24 19:55 Dose: 4 mg Documented By: FIDENCIO Ondansetron HCl (Ondansetron 4 Mg Odt) 4 mg SL NOW PRN PRN Reason: Nausea And Vomiting Last Admin: 08/07/24 22:52 Dose: 4 mg Documented By: FIDENCIO Ondansetron HCl (Ondansetron 4 Mg/2 Ml Inj) 4 mg IV NOW ONE Stop: 08/07/24 19:33 Last Admin: 08/07/24 20:12 Dose: Not Given Documented By: FIDENCIO Oxycodone HCl (Oxycodone Ir 5 Mg Tablet) 15 mg PO NOW ONE Stop: 08/07/24 22:04 Last Admin: 08/07/24 22:52 Dose: 15 mg Documented By: FIDENCIO Vital Signs Vital signs: Vital Signs - 8 hr 08/07/24 18:25 08/07/24 18:50 08/07/24 19:00 Temperature 99.5 F Pulse Rate 112 H 115 H Respiratory Rate 18 17 Blood Pressure 128/76 123/65 Pulse Oximetry 100 99 Oxygen Delivery Method Room Air 08/07/24 19:00 08/07/24 19:13 08/07/24 19:30 Temperature 99.9 F H Pulse Rate 107 H 123 H 114 H Respiratory Rate 21 22 24 Blood Pressure Pulse Oximetry 98 95 98 Oxygen Delivery Method Room Air Room Air 08/07/24 19:31 08/07/24 19:31 08/07/24 19:55 Temperature 99.7 F H Pulse Rate 115 H Respiratory Rate 23 Blood Pressure 100/53 L Pulse Oximetry 97 Oxygen Delivery Method 08/07/24 20:00 08/07/24 20:00 08/07/24 20:15 Temperature Pulse Rate 107 H Respiratory Rate 21 Blood Pressure 105/68 108/59 L Pulse Oximetry 97 Oxygen Delivery Method Room Air 08/07/24 20:15 08/07/24 20:25 08/07/24 20:30 Temperature 99.7 F H Pulse Rate 107 H Respiratory Rate 20 Blood Pressure 115/55 L Pulse Oximetry 99 Oxygen Delivery Method 08/07/24 20:30 08/07/24 20:45 08/07/24 20:45 Temperature Pulse Rate 108 H 106 H Respiratory Rate 20 14 Blood Pressure 135/78 Pulse Oximetry 99 Oxygen Delivery Method 08/07/24 21:19 08/07/24 21:30 08/07/24 22:00 Temperature Pulse Rate 126 H 110 H 101 H Respiratory Rate 16 17 17 Blood Pressure 135/78 Pulse Oximetry 98 Oxygen Delivery Method Room Air 08/07/24 22:05 08/07/24 22:05 08/07/24 22:11 Temperature Pulse Rate 108 H Respiratory Rate 12 Blood Pressure 83/48 L 93/52 L Pulse Oximetry Oxygen Delivery Method 08/07/24 22:11 08/07/24 22:12 08/07/24 22:12 Temperature Pulse Rate 105 H 108 H Respiratory Rate 12 16 Blood Pressure 91/53 L Pulse Oximetry 96 Oxygen Delivery Method 08/07/24 22:13 08/07/24 22:13 08/07/24 22:30 Temperature Pulse Rate 107 H 109 H Respiratory Rate 19 15 Blood Pressure 95/53 L Pulse Oximetry 100 Oxygen Delivery Method 08/07/24 22:45 08/07/24 22:45 08/07/24 22:52 Temperature 98.8 F Pulse Rate 117 H Respiratory Rate 16 Blood Pressure 95/54 L Pulse Oximetry 98 Oxygen Delivery Method 08/07/24 22:52 08/07/24 23:00 08/07/24 23:16 Temperature 98.8 F Pulse Rate 116 H 103 H Respiratory Rate 16 18 Blood Pressure Pulse Oximetry 97 Oxygen Delivery Method 08/07/24 23:16 08/07/24 23:21 08/07/24 23:21 Temperature Pulse Rate 101 H Respiratory Rate 23 Blood Pressure 119/62 111/57 L Pulse Oximetry 97 Oxygen Delivery Method 08/07/24 23:30 08/07/24 23:40 08/07/24 23:40 Temperature 98.8 F Pulse Rate 97 H 99 H Respiratory Rate 12 12 Blood Pressure 100/55 L Pulse Oximetry 96 95 Oxygen Delivery Method MDM - Back Pain/Injury Lab Data Attestation: I reviewed the patient's lab results. Lab results narrative: White blood cell count 6300, hemoglobin 9.8, platelets 314,000. Glucose 104. BUN 6 with creatinine 0.74. Serum CO2 30. Sodium 134 with potassium 3.4. Liver functions and lipase normal. Troponin negative. BNP 221. Procalcitonin not elevated. Urine test negative. Urine dip positive for blood otherwise negative. 08/07/24 18:50 08/07/24 18:50 Labs: Lab Results 08/07/24 Range/Units 18:50 WBC 6.3 (4.5-11.0) X10^3/uL RBC 3.21 L (4.0-5.2) X10^6/uL Hgb 9.8 L (12.0-16.0) g/dL Hct 28.4 L (36-46) % MCV 88.5 (80-100) fL MCH 30.6 (26-34) PG MCHC 34.6 (30-36) % RDW 13.4 (11.6-14.8) % Plt Count 314 (150-400) X10^3/uL Neut % (Auto) 63.7 (50-75) % Lymph % (Auto) 25.1 (25-40) % Lares % (Auto) 7.1 (3-14) % Eos % (Auto) 3.7 (2-4) % Baso % (Auto) 0.4 (0-2) % Neut # (Auto) 4000 (9896-6955) /uL Lymph # (Auto) 1600 (4376-1248) /uL Lares # (Auto) 400 (0-900) /uL Eos # (Auto) 200 (0-450) /uL Baso # (Auto) 0 (0-100) /uL PT 12.5 (9.4-12.5) SECONDS INR 1.1 (0.9-1.3) APTT 36 (25.1-36.5) SECONDS Sodium 136 L (137-145) mmol/L Potassium 3.4 (3.4-5.1) mmol/L Chloride 102 (98-107) mmol/L Carbon Dioxide 30 (22-32) mmol/L BUN 6 L (7-17) mg/dL Creatinine 0.74 (0.52-1.04) mg/dL Estimated GFR > 60 (>60) mL/min BUN/Creatinine Ratio 8.1 (6-22) Glucose 104 H (70-100) mg/dL Lactate 1.0 (0.7-2.1) mmol/L Calcium 8.5 (8.4-10.2) mg/dL Magnesium 1.8 (1.6-2.3) mg/dL Total Bilirubin 0.3 (0.2-1.3) mg/dL AST 20 (14-36) IU/L ALT 17 (<35) IU/L Alkaline Phosphatase 66 (38-126) U/L Total Creatine Kinase 64 (30-135) U/L Troponin I < 0.012 (0.01-0.034) ng/mL NT-Pro-B Natriuret Pep 221 H (<125) pg/mL Total Protein 5.7 L (6.3-8.2) g/dL Albumin 3.1 L (3.5-5.0) g/dL Globulin 2.6 (1.7-4.1) g/dL Albumin/Globulin Ratio 1.2 (1.0-2.8) Lipase 36 (23-300) U/L Procalcitonin 0.042 (<0.5) ng/mL Point of Care Testing Test Results Negative Urine Dip Bedside Urine Glucose Negative Bedside Urine Bilirubin - Negative Bedside Urine Ketone - Negative Urine Specific [place] 1.000 Bedside Urine Occult Blood +++ Bedside Urine pH 8.0 Bedside Urine Protein - Negative Bedside Urine Urobilinogen - Negative Bedside Urine Nitrite - Negative Bedside Urine Leukocytes - Negative Esterase Imaging Data Chest x-ray: Radiologist's Impression: [address] [address] XRay Report Signed Patient: Kelsy Gonzales MR#: [id number] : 1985 Acct:[id number] Age/Sex: 38 / F Date of Service: 08/07/24 Loc: ED Accession Number: [id number] Procedure: XR chest 1V Ordering Provider: Sebastian Toure MD PROCEDURE: XR CHEST 1V INDICATIONS: chest pain TECHNIQUE: One view of the chest was acquired. COMPARISON: [facility], , XR CHEST 2V, 01/01/2022, 11:08. FINDINGS: Surgical changes and devices: None. Lungs and pleura: Lungs are clear. No pleural effusions or pneumothorax. Mediastinum: Mediastinal contours appear normal. Heart size is normal. Bones and chest wall: No suspicious bony lesions. Overlying soft tissues appear unremarkable. IMPRESSION: No acute cardiopulmonary abnormality is seen. Dictated by: Teena Vyas M.D. on 08/07/2024 at 20:01 Approved by: Teena Vyas M.D. on 08/07/2024 at 20:01 ECG Data Attestation: I personally reviewed and interpreted this ECG as follows: Interpretation: Sinus tachycardia with rate of 110, no obvious ST segment elevation or depression changes. DC 174, QRS 86, QTC 435. MDM Narrative Medical decision making narrative: 38-year-old female status post recent lumbar surgery [facility], discharged yesterday with drains pulled, has headache. No fever, no photophobia, moves neck well. IV fluid bolus, IV morphine. Some improvement in headache, repeat IV morphine Further improved, able to ambulate to the bathroom, she would like to go home. She has postoperative pain medication. Encouraged to call her neurosurgeon on Friday if she has concerns. DC home. Return precautions discussed. Discharge Plan Departure Patient Disposition: Home Clinical Impression: Headache, History of lumbar surgery Activity Restrictions/Additional Instructions: History of prior migraine headaches. Status post recent lumbar surgery with drains pulled yesterday, having increasing headache. IV pain medication IV fluid given. Symptoms improved, able to ambulate to adjacent bedside urinal. Symptoms improved, requests to be discharged home. Return precautions discussed. Also consider contacting your neurosurgeon on Friday during regular hours to see if there follow up appointment needs to be changed. Continue taking your postoperative pain medication as directed. Return earlier to this/nearest emergency department for any change worsening symptoms or any concerns prior. Prescriptions: No Action spironolactone 25 mg tablet 25 mg PO DAILY benzonatate 100 mg capsule 100 mg PO TID PRN (Reason: cough) Qty: 30 0RF azithromycin 250 mg tablet See Rx Instructions PO .COMPLEX Qty: 6 0RF Rx Instructions: take 500 mg today (day 1), then 250 mg for 4 days (days 2-5) PO albuterol sulfate 90 mcg/actuation HFA aerosol inhaler 2 puff inhalation Q4-6H PRN (Reason: bronchospasm) Qty: 8.5 0RF clonidine HCl 0.1 MG tablet 3 tab PO HS Qty: 0 dextroamphetamine-amphetamine [Adderall] 10 MG tablet 10 mg PO BID Qty: 0 cholecalciferol (vitamin D3) 50,000 UNIT capsule 50,000 unit PO Qty: 0 gabapentin [Neurontin] 600 MG tablet 600 mg PO TID Qty: 0 bupropion HCl [Wellbutrin SR] 200 MG tablet extended release 12 hr 200 mg PO QAM Qty: 0 lurasidone [Latuda] 20 MG tablet 20 mg PO QDAY Qty: 0 clonazepam 1 MG tablet BID Qty: 0 doxazosin 2 MG tablet 2 mg PO QDAY Qty: 0 ondansetron [Zofran ODT] 4 MG tablet,disintegrating 4 mg Sublingual Q4HP PRNQty: 15 0RF meclizine 25 MG tablet 25 mg PO Q6HP PRNQty: 20 0RF oxycodone-acetaminophen [Percocet] 5-325 mg tablet 1 tab PO Q4-6H PRN (Reason: pain) Qty: 7 0RF prednisone 20 mg tablet 40 mg PO DAILY Qty: 10 0RF nitrofurantoin macrocrystal 100 mg capsule 100 mg PO BID Qty: 14 0RF Rx Instructions: must administer with a meal/food Referrals: Flako James MD [Primary Care Provider] - Stand Alone Forms: Patient Portal/API/Survey
[2024-08-07 19:47] LABS: Procalcitonin 0.042 ng/mL (<0.5)
[2024-08-07] MEDS: ONDANSETRON 4 MG/2 ML INJ IV (19:55)
[2024-08-07] MEDS: MORPHINE 4 MG/ML INJ IV ×2 (19:55→21:13)
--- NOTE | 2024-08-07 21:52 | PC.NURSE ---
yellow dried drainage from mid back circles from drains that were discontinued at [facility], dried blood from surgical incision, redness around surgical wound and drain sites but no warmth or purulent drainage noted. Edges approximated by sutures. cleansed wound with saline covered gauze, patted dry. Applied Skin protectant pads around wound but not to wound edges. Abd pads to all sites of incision and sites where drains were pulled/having drainage. Taped with Large tegaderms then secured with Med-Fix tape.
[2024-08-07] MEDS: OXYCODONE IR 5 MG TABLET 15 MG PO (22:52)
[2024-08-07] MEDS: ACETAMINOPHEN 325 MG TABLET 975 MG PO (22:52)
[2024-08-07] MEDS: ONDANSETRON 4 MG ODT SL (22:52)
== END 2024-08-08 00:24 | disposition home or self-care (01) ==
PROVIDERS: Emergency Provider Emergency Medicine; PCP Internal Medicine
DX: R51.9 Headache, unspecified (principal); R07.9 Chest pain, unspecified; R00.0 Tachycardia, unspecified; Z98.890 Other specified postprocedural states
CPT/HCPCS: 36415; 71045; 80053; 81003; 81025; 82550; 83605; 83690; 83735; 83880; 84145; 84484; 85025; 85610; 85730; 87040; 93005; 96361; 96374; 96375; 96376; 99284; J2270; J2405